=== PATIENT | female | born 1990 | race Caucasian/White ===

== ENCOUNTER 2017-02-11 10:32 | Emergency (ER) | payer MEDICAID ==
[~2017-02-11] VITALS: Ht 162.6 cm; Wt 75.0 kg
[2017-02-11] MEDS ORDERED: IBUPROFEN 600MG TABLET PO ONE (11:15)
[2017-02-11 11:22] VITALS: BP 139/64
== END 2017-02-11 11:36 | disposition home or self-care (01) ==
LOC: ER 11:15
DX: N64.4 Mastodynia (principal); F12.10 Cannabis abuse, uncomplicated
CPT/HCPCS: 99282

== ENCOUNTER 2017-08-16 09:46 | Emergency (ER) | payer MEDICAID ==
[~2017-08-16] VITALS: Ht 162.6 cm; Wt 73.0 kg
[2017-08-16 09:53] VITALS: BP 146/89
== END 2017-08-16 16:18 | disposition home or self-care (01) ==
LOC: ER 10:23
DX: R05 Cough (principal); F12.10 Cannabis abuse, uncomplicated
CPT/HCPCS: 71045; 81025; 87804; 99285